=== PATIENT | male | born 1990 | race Caucasian/White ===

== ENCOUNTER 2018-05-26 22:37 | Emergency (ER) | payer MEDICAID ==
[~2018-05-26] VITALS: Ht 167.6 cm; Wt 76.8 kg
[~2018-05-26 22:37] MED LIST: ALBU8.5H8 INH; HYDR-3964 PO; MEDICAL MARIJUANA; NEBU-208
[2018-05-26] MEDS ORDERED: albuterol 2.5 MG/3 ML nebule NEB ONE (22:50)
[2018-05-26] MEDS ORDERED: mag hydrox/Alum hydrox/simeth 30ml oral suspension PO ONE (22:50)
[2018-05-26] MEDS ORDERED: dexamethasone 4mg tablet PO ONE (22:50)
[2018-05-26] MEDS ORDERED: diphenhydrAMINE 25 MG/10 ML UD oral solution PO ONE (22:50)
[2018-05-26] MEDS ORDERED: LIDOcaine Viscous 15ml cup PO ONE (22:50)
[2018-05-26] MEDS ORDERED: ALBU6.7H INH (23:41)
[2018-05-26] MEDS ORDERED: ALB0.5UD IH (23:41)
[2018-05-27] VITALS: BP 145/87
== END 2018-05-27 00:02 | disposition home or self-care (01) ==
LOC: ER 22:37
DX: J45.909 Unspecified asthma, uncomplicated (principal); Z88.0 Allergy status to penicillin; Z88.8 Allergy status to other drugs, medicaments and biological substances
CPT/HCPCS: 71045; 94640; 94760; 99284; J8540; Q0163

== ENCOUNTER 2018-12-27 11:13 | Emergency (ER) | payer MEDICAID ==
[~2018-12-27] VITALS: Ht 167.6 cm; Wt 76.0 kg
[~2018-12-27 11:13] MED LIST changes: +ALBU6.7H9 INH
[2018-12-27 11:26] VITALS: BP 146/95
[2018-12-27] MEDS ORDERED: SULF1TAB49 PO (11:53)
[2018-12-27] MEDS ORDERED: CEPH500C5 PO (11:53)
== END 2018-12-27 12:07 | disposition home or self-care (01) ==
LOC: ER 11:13
DX: L03.211 Cellulitis of face (principal); L01.00 Impetigo, unspecified; J06.9 Acute upper respiratory infection, unspecified; Z60.2 Problems related to living alone; Z88.0 Allergy status to penicillin; Z88.8 Allergy status to other drugs, medicaments and biological substances; Z79.899 Other long term (current) drug therapy
CPT/HCPCS: 99283

== ENCOUNTER 2020-01-17 18:39 | Emergency (ER) | payer BC, MEDICAID ==
[~2020-01-17] VITALS: Ht 167.6 cm; Wt 76.0 kg
[2020-01-17] MEDS ORDERED: LIDOcaine 1% W/epiNEPHrine 1:100,000 20ml vial IJ ONE (18:50)
[2020-01-17] MEDS ORDERED: TETanus/Pertussis (Acell)/Diphther VAC/PF (Tdap-Adult) 0.5ml syringe IMVAC ONE (18:50)
[2020-01-17] MEDS ORDERED: LIDOcaine 1% W/epiNEPHrine 1:200,000 10ml vial IJ ONE (18:50)
--- NOTE | 2020-01-17 19:30 | NUR ---
dressed sutured wound to rt hand with triple antibiotic, guaze and guaze roll
[2020-01-17 19:39] VITALS: BP 128/100
== END 2020-01-17 19:38 | disposition home or self-care (01) ==
LOC: ER 18:39
DX: S61.411A Laceration without foreign body of right hand, initial encounter (principal); Z60.2 Problems related to living alone; Z88.0 Allergy status to penicillin; Z88.8 Allergy status to other drugs, medicaments and biological substances; Z79.899 Other long term (current) drug therapy; W25.XXXA Contact with sharp glass, initial encounter; Y93.89 Activity, other specified; Y92.89 Other specified places as the place of occurrence of the external cause; Y99.8 Other external cause status
CPT/HCPCS: 12002; 90471; 90715; 99283

== ENCOUNTER 2020-01-24 04:27 | Emergency (ER) | payer BC ==
[~2020-01-24] VITALS: Ht 167.6 cm; Wt 75.0 kg
[2020-01-24] MEDS ORDERED: albuterol 2.5 MG/3 ML nebule NEB ONE (04:45)
[2020-01-24] MEDS ORDERED: ipratropium/albuterol 3ml nebule NEB PRN (04:45)
[2020-01-24 04:54] VITALS: BP 146/93
[2020-01-24 05:44] LABS: BASOPHILS # (AUTO) 0.1 X10'3 (0-0.2); BASOPHILS % (AUTO) 0.9 % (0-1); EOSINOPHILS # (AUTO) 0.4 X10'3 (0-0.9); EOSINOPHILS % (AUTO) 3.6 % (0-6); HEMATOCRIT 46.2 % (42.0-52.0); HEMOGLOBIN 15.9 g/dl (14.0-17.9); LYMPHOCYTES # (AUTO) 4.1 X10'3 (1.1-4.8); MEAN CORPUSCULAR HEMOGLOBIN 30.7 PG (27.0-31.0); MEAN CORPUSCULAR HGB CONC 34.4 g/dL (33.0-36.5); MEAN CORPUSCULAR VOLUME 89.2 FL (78-98); MEAN PLATELET VOLUME 8.6 FL (7.4-10.4); MONOCYTES # (AUTO) 0.7 X10'3 (0-0.9); MONOCYTES % (AUTO) 5.6 % (2-12); NEUTROPHILS # (AUTO) 6.7 X10'3 (1.8-7.7); NEUTROPHILS % (AUTO) 55.9 % (42-75); PLATELET COUNT 284 X10'3 (140-440); RED BLOOD COUNT 5.18 X10'6 (4.70-6.10); RED CELL DISTRIBUTION WIDTH 12.9 % (11.5-14.5)
[2020-01-24 06:03] LABS: ALANINE AMINOTRANSFERASE 73 U/L (12-78); ALBUMIN 4.3 G/DL (3.4-5.0); ALBUMIN/GLOBULIN RATIO 1.2 (1.1-1.5); ALKALINE PHOSPHATASE 83 IU/L (46-116); ANION GAP 11 (8-16); ASPARTATE AMINO TRANSFERASE 29 U/L (10-37); BILIRUBIN,TOTAL 0.3 MG/DL (0.1-1.0); BLOOD UREA NITROGEN 21 MG/DL (7-18); BUN/CREATININE RATIO 18.6 (5.4-32.0); CALCIUM 8.8 MG/DL (8.5-10.1); CHLORIDE 103 MMOL/L (99-107); CREATININE 1.13 MG/DL (0.60-1.10); GLUCOSE 102 MG/DL (70-104); POTASSIUM 3.8 MMOL/L (3.5-5.1); SODIUM 138 MMOL/L (135-145); TOTAL CARBON DIOXIDE 23.7 MMOL/L (24-32); TOTAL PROTEIN 7.8 G/DL (6.4-8.2); eGFR 76 ML/MIN
== END 2020-01-24 06:24 | disposition home or self-care (01) ==
LOC: ER 04:27
DX: J45.909 Unspecified asthma, uncomplicated (principal); R06.02 Shortness of breath; R05 Cough; Z88.0 Allergy status to penicillin; Z88.8 Allergy status to other drugs, medicaments and biological substances; Z79.899 Other long term (current) drug therapy
CPT/HCPCS: 36415; 71045; 80053; 85025; 94640; 94760; 99284